=== PATIENT | female | born 1960 | race Two or more races ===

== ENCOUNTER 2018-09-21 15:51 | Observation (INO) | payer OTHER ==
[~2018-09-21] VITALS: Ht 157.5 cm; Wt 59.1 kg
[~2018-09-21 15:51] MED LIST: CEPH500 PO; CYCL10 PO; Estradiol0.5 MG PO; HYDACE5325 PO; NAPR550 PO; Norco 5-325 Ta1 EACH PO; PROG100 PO; RXCYCL10 PO; RXHYD5325 PO; RXNAPNA550 PO; VICODIN
[2018-09-21 16:13] LABS: Source, Urine Clean Catch
[2018-09-21 16:27] LABS: BASOPHILS ABSOLUTE AUTO 0.03 K/mm3 (0.00-0.23); BASOPHILS PERCENT AUTO 0 % (0-2); EOSINOPHILS ABSOLUTE AUTO 0.06 K/mm3 (0.00-0.68); EOSINOPHILS PERCENT AUTO 1 % (0-6); Hematocrit 39.1 % (33.0-51.0); IMMATURE GRAN ABSOLUTE AUTO 0.02 K/mm3 (0.00-0.10); IMMATURE GRAN PERCENT AUTO 0 % (0-1); LYMPHOCYTES ABSOLUTE AUTO 3.65 K/mm3 (0.84-5.20); LYMPHOCYTES PERCENT AUTO 37 % (21-46); MONOCYTES ABSOLUTE AUTO 0.54 K/mm3 (0.16-1.47); MONOCYTES PERCENT AUTO 6 % (4-13); Mean Corpuscular HGB Conc 33.2 g/dL (31.5-36.5); Mean Corpuscular Volume 93 fL (80-100); Mean Platelet Volume 8.7 fL (9.1-12.4); NEUTROPHILS ABSOLUTE AUTO 5.45 K/mm3 (1.96-9.15); NEUTROPHILS PERCENT AUTO 56 % (41-73); Platelet Count 293 K/mm3 (150-400); RDW Coefficient Variation 12.9 % (11.7-14.2); RDW Standard Deviation 44.2 fL (35.1-46.3); White Blood Cell Count 9.75 K/mm3 (4.00-11.30)
[2018-09-21 16:44] LABS: Alanine Aminotransfer (ALT/SGP 22 U/L (12-78); Albumin, Blood 4.4 g/dL (3.4-5.0); Albumin/Globulin Ratio 1.3 (0.8-1.8); Alk Phos 58 U/L (50-136); Anion Gap 8 mmol/L (6-16); Aspartate Aminotrans (AST/SGOT 17 U/L (12-37); Bilirubin, Total 0.3 mg/dL (0.1-1.0); Blood Urea Nitrogen 13 mg/dL (8-24); Bun/Creatinine Ratio 20.5 (12.0-20.0); CO2, Blood 24 mmol/L (21-32); Calcium, Blood 9.2 mg/dL (8.5-10.1); Chloride, Blood 106 mmol/L (98-108); Creatinine, Blood 0.63 mg/dL (0.40-1.00); Globulin, Blood 3.5 g/dL (2.2-4.0); Glomerular Filtration Rate >60 (60-); Glucose, Blood 91 mg/dL (70-99); Potassium, Blood 3.3 mmol/L (3.5-5.5); Sodium, Blood 138 mmol/L (136-145); Total Protein, Blood 7.9 g/dL (6.4-8.2); Troponin I <0.015 ng/mL (0.000-0.040)
[2018-09-21 16:45] LABS: Appearance, Urine Clear (Clear); Bilirubin, Urine Neg (Neg); Blood, Urine Neg (Neg); Color, Urine Yellow (P-Yellow); Glucose Qualitative, Urine Neg (Neg); Ketones, Urine 1+ (Neg); Leukocyte Esterase, Urine Neg (Neg); Nitrite, Urine Neg (Neg); Protein, Urine Neg (Neg); Specific Gravity, Urine 1.005 (1.003-1.022); Urobilinogen, Urine NORM (Normal); pH, Urine 6.5 (5.0-8.0)
[2018-09-21 19:27] LABS: CHOL/HDL RATIO 3.2; Cholesterol 251 mg/dL (50-200); HDL Cholesterol 78 mg/dL (>39); LDL/HDL RATIO 1.9; Low Density Lipoprotein Chol 144 mg/dL (0-110); Triglycerides 143 mg/dL (30-160); Very Low Density Lipoprot Chol 29 mg/dL (6-32)
[2018-09-22 05:15] LABS: Anion Gap 10 mmol/L (6-16); Blood Urea Nitrogen 13 mg/dL (8-24); Bun/Creatinine Ratio 21.1 (12.0-20.0); CO2, Blood 23 mmol/L (21-32); Calcium, Blood 8.7 mg/dL (8.5-10.1); Chloride, Blood 108 mmol/L (98-108); Creatinine, Blood 0.62 mg/dL (0.40-1.00); Glomerular Filtration Rate >60 (60-); Glucose, Blood 99 mg/dL (70-99); Sodium, Blood 141 mmol/L (136-145)
[2018-09-22] MEDS ORDERED: ASPI81CH PO (16:03)
[2018-09-22] MEDS ORDERED: ATOR20 PO (16:04)
[2018-09-22] MEDS ORDERED: NICO21TP TD (16:05)
[2018-09-22] MEDS ORDERED: PANT40 PO (16:07)
[2018-09-22] MEDS ORDERED: NITR.4SL SL (16:07)
== END 2018-09-22 18:03 | disposition home or self-care (01) ==
LOC: ER 15:51 → MEDS 15:52 → ER 20:36 → MEDS 20:42
PROVIDERS: Emergency Medicine; Internal Medicine; Nurse Practitioner Acute Care
DX: R07.9 Chest pain, unspecified (principal); M54.9 Dorsalgia, unspecified; G89.29 Other chronic pain; J45.20 Mild intermittent asthma, uncomplicated; M19.90 Unspecified osteoarthritis, unspecified site; F17.210 Nicotine dependence, cigarettes, uncomplicated; E87.6 Hypokalemia; Z79.01 Long term (current) use of anticoagulants; Z88.5 Allergy status to narcotic agent; Z79.899 Other long term (current) drug therapy; R94.31 Abnormal electrocardiogram [ECG] [EKG]
CPT/HCPCS: 36415; 71046; 80048; 80053; 80061; 81003; 83880; 84484; 85025; 93005; 93010; 99285-25; J1650

== ENCOUNTER 2021-06-03 07:53 | Day surgery (SDC) | payer OTHER ==
[~2021-06-03] VITALS: Ht 157.5 cm; Wt 61.9 kg
[~2021-06-03 07:53] MED LIST changes: +ALBU90OI INH; +ASPI81CH PO; +ATOR20 PO; +Flonase 0.05% N16 GM; +NAPR500 PO; +NICO21TP TD; +NITR.4SL SL; +PANT40 PO
--- NOTE | 2021-06-03 09:30 | NUR ---
History, Chart, Medications and Allergies reviewed before start of procedure. Lungs clear T/O to Auscultation. Patient confirms NPO status and agrees with scheduled surgery. Pre-Op teaching done. Pt verbalizes understanding. Patient reports completing Chlorhexadine shower X2 prior to admission to hospital.
--- NOTE | 2021-06-03 13:05 | NUR ---
PT TOLERATED WATER, JUICE AND CRACKERS WELL, NORCO GIVEN PER ORDER. Discharge instructions reviewed with patient. Patient verbalizes understanding. Copy given to patient to take home. BINDER ON, DRG INTACT WITH SPACER IN PLACE. PT STATES PAIN ABOUT THE SAME AT 3 BUT TOLERABLE. Discharged via wheelchair to private car for ride home.
== END 2021-06-03 13:05 | disposition home or self-care (01) ==
LOC: ORSCMMR 07:53 → NM 09:00 → ORSCMMR 13:05
PROVIDERS: Surgery
PROC: 0HHU0NZ Insertion of Tissue Expander into Left Breast, Open Approach (ICD-10-PCS; principal; 2021-06-03 10:00)
PROC: 0HBU0ZZ Excision of Left Breast, Open Approach (ICD-10-PCS; principal; 2021-06-03 10:00)
PROC: 07B60ZX Excision of Left Axillary Lymphatic, Open Approach, Diagnostic (ICD-10-PCS; principal; 2021-06-03 10:00)
DX: C50.212 Malignant neoplasm of upper-inner quadrant of left female breast (principal); Z17.0 Estrogen receptor positive status [ER+]; D36.0 Benign neoplasm of lymph nodes; E78.5 Hyperlipidemia, unspecified; F17.210 Nicotine dependence, cigarettes, uncomplicated; Z79.899 Other long term (current) drug therapy
CPT/HCPCS: 38792; 88307; 88331; 88342; A9270; A9520; J0690; J1100; J1885; J2250; J2405; J2704; J3010; J7120; Q9968

== ENCOUNTER 2021-06-06 10:23 | Day surgery (SDC) | payer OTHER ==
[~2021-06-06] VITALS: Ht 157.5 cm; Wt 62.7 kg
[2021-06-06] MEDS ORDERED: HYDROCODONE-AC1 EA10 PO (10:42)
--- NOTE | 2021-06-06 10:57 | NUR ---
Ambulatory in Day Surgery. History, Chart, Medications and Allergies reviewed before start of procedure. Patient confirms NPO status and agrees with scheduled surgery. Pt had small sip of milk with pain pill at 0730. OK per Dr Gomez. Patient States Post-Procedure ride home has been arranged. Pre-Op teaching done. Pt verbalizes understanding.
--- NOTE | 2021-06-06 13:37 | NUR ---
Dressing to procedure site clean, dry, intact with no visible drainage, swelling, erythema or bruising noted.
--- NOTE | 2021-06-06 13:37 | NUR ---
Discharge instructions reviewed with patient. Patient verbalizes understanding. Copy given to patient to take home.
--- NOTE | 2021-06-06 14:02 | NUR ---
Discharged via wheelchair to private car for ride home.
== END 2021-06-06 14:04 | disposition home or self-care (01) ==
LOC: ORSCMMR 10:23 → ORD 13:00 → ORSCMMR 13:00
PROVIDERS: Surgery
PROC: 0HBU0ZZ Excision of Left Breast, Open Approach (ICD-10-PCS; principal; 2021-06-06 12:00)
DX: C50.212 Malignant neoplasm of upper-inner quadrant of left female breast (principal); E78.5 Hyperlipidemia, unspecified; Z87.891 Personal history of nicotine dependence; F17.210 Nicotine dependence, cigarettes, uncomplicated; Z79.899 Other long term (current) drug therapy
CPT/HCPCS: 88307; A9270; J0690; J1100; J1885; J2250; J2405; J2704; J3010; J7120

== ENCOUNTER 2021-06-23 05:42 | Day surgery (SDC) | payer OTHER ==
[~2021-06-23] VITALS: Ht 157.5 cm; Wt 62.4 kg
[~2021-06-23 05:42] MED LIST changes: +HYDROCODONE-AC1 EA10 PO
--- NOTE | 2021-06-23 06:35 | NUR ---
PT AMBULATES TO [facility] c [facility] GA[facility]. History, Chart, Medications and Allergies reviewed before start of procedure. Lungs clear T/O to Auscultation. Patient confirms NPO status and agrees with scheduled surgery. Patient States Post-Procedure ride home has been arranged. +VOID. Surgical site prepped with 2% Chlorhexidine cloth wipe.
--- NOTE | 2021-06-23 09:30 | NUR ---
Patient up to Ambulate independently. Gait steady. Discharge instructions reviewed with patient. Patient verbalizes understanding. Copy given to patient to take home. Discharged via wheelchair to private car for ride home.
== END 2021-06-23 23:27 | disposition home or self-care (01) ==
LOC: ORSCMMR 05:42 → ORD 07:30 → ORSCMMR 23:27
PROVIDERS: Surgery
PROC: 0HBU0ZZ Excision of Left Breast, Open Approach (ICD-10-PCS; principal; 2021-06-23 07:30)
DX: C50.212 Malignant neoplasm of upper-inner quadrant of left female breast (principal); Z17.0 Estrogen receptor positive status [ER+]; E78.5 Hyperlipidemia, unspecified; J45.909 Unspecified asthma, uncomplicated; Z79.899 Other long term (current) drug therapy
CPT/HCPCS: 88307; A9270; J0690; J1100; J1885; J2250; J2405; J2704; J3010; J7120